=== PATIENT | male | born 1985 | race Caucasian/White ===

== ENCOUNTER 2016-03-16 21:59 | Emergency (ER) | payer MEDICAID, OTHER ==
[2016-03-16 22:25] VITALS: BP 127/78; PULSE 101; RESP 16; TEMP 98.1; O2SAT 96
--- NOTE | 2016-03-16 22:50 | UCPHY ---
H & P Time Seen by Provider: 03/16/16 22:13 Patient Type: New HPI/ROS: This patient presents with a chief complaint of a cough which is productive and which has been present for approximately 1 week. He also has a stiff neck. When the illness 1st began he had generalized myalgias but these have resolved except for the neck pain and he denies any headache or sore throat. He has had some mild nasal congestion but no fever, ear pain, chest pain or shortness of breath. He is also hoarse Smoking Status: Current every day smoker Physical Exam: GENERAL: Well-appearing, well-nourished and in no acute distress. HEAD: Atraumatic, normocephalic. EYES: Pupils equal round and reactive to light, extraocular movements intact, sclera anicteric, conjunctiva are normal. ENT: TMs normal, nares patent, oropharynx clear without exudates. Moist mucous membranes. NECK: Normal range of motion, supple without lymphadenopathy or JVD. LUNGS: Breath sounds clear to auscultation bilaterally and equal. No wheezes rales or rhonchi. HEART: Regular rate and rhythm EXTREMITIES: Normal range of motion, NEUROLOGICAL: Cranial nerves II through XII grossly intact. Normal speech, normal gait. PSYCH: Normal mood, normal affect. SKIN: Warm, dry, normal turgor, no visible rashes or lesions. Constitutional: Initial Vital Signs Temperature (C) 36.7 C 03/16/16 22:12 Heart Rate 101 H 03/16/16 22:12 Respiratory Rate 16 03/16/16 22:12 Blood Pressure 127/78 H 03/16/16 22:12 O2 Sat (%) 96 03/16/16 22:12 O2 Delivery Mode Room Air Allergies/Adverse Reactions: No Known Allergies Allergy (Verified 03/16/16 22:19) Home Medications: Medication Instructions Recorded Albuterol Hfa Anes Only 03/16/16 Medical Decision Making Differential Diagnosis: I believe that this patient has a viral illness and then antibiotics are not indicated. I do not believe that a chest x-ray would be abnormal. Departure - Departure Disposition: Home, Routine, Self-Care Clinical Impression: Acute bronchitis Qualifiers: Bronchitis organism: unspecified organism Qualifier Code: (J20.9) Acute bronchitis, unspecified Condition: Good Instructions: Acute Bronchitis (ED) Additional Instructions: If your symptoms have not resolved in another 5-7 days you should be re- evaluated. Try Robitussin DM which you can get without a prescription. Adult Pain & Fever Control: We recommend Acetaminophen (Tylenol) and Ibuprofen (Motrin, Advil) for pain and fever control. When fever is high or pain severe, both drugs can be used at the same time, but at different intervals. Please note the time differences. Your dose is: Acetaminophen [650]mg every 4 to 6 hours ibuprofen [600]mg every [6] hours with food OR naproxen Sodium (Aleve) [440]mg every 12 hours. Note: do not take Acetaminophen with Hydrocodone (Vicodin, Lortab) or Oxycodone (Percocet). These medications also contain Acetaminophen. No more than 3000 mg of Acetaminophen should be taken in 24 hours (for an adult) . The maximal dose of ibuprofen that it is safe in a 24-hour period is 2400 mg. You may take 400 mg every 4 hours, 600 mg every 6 hours or 800 mg every 8 hours safely. - PQRS PQRS Measurement: Not applicable
== END 2016-03-16 22:53 | disposition home or self-care (01) ==
LOC: CED 21:59
DX: J20.9 Acute bronchitis, unspecified (principal); M54.2 Cervicalgia
CPT/HCPCS: 99203-PO; G0463-PO

== ENCOUNTER 2016-06-30 11:09 | Emergency (ER) | payer MEDICAID ==
[2016-06-30 11:27] VITALS: RESP 16; TEMP 97.7
[2016-06-30 12:17] LABS: % IMMATURE GRANULYOCYTES 0.2 % (0.0-1.1); ABSOLUTE IMMATURE GRANULOCYTES 0.02 10^3/uL (0.00-0.10); ADD DIFF? NO; ADD MORPH? NO; ADD SCAN? NO; ATYPICAL LYMPHOCYTE FLAG 20 (0-99); FRAGMENT RBC FLAG 0 (0-99); HEMOGLOBIN 16.9 g/dL (13.7-17.5); LEFT SHIFT FLG 0 (0-99); LIPEMIA HEMOLYSIS FLAG 90 (0-99); MEAN CELL HEMOGLOBIN 30.3 pg (27.9-34.1); MEAN CELL HEMOGLOBIN CONCENTR. 33.8 g/dL (32.4-36.7); MEAN CELL VOLUME 89.6 fL (81.5-99.8); MEAN PLATELET VOLUME 10.7 fL (8.7-11.7); PLATELET CLUMPS FLAG 0 (0-99); PLATELET COUNT 289 10^3/uL (150-400); RED BLOOD CELL COUNT 5.58 10^6/uL (4.40-6.38); RED CELL DISTRIBUTION WIDTH 12.8 % (11.5-15.2)
[2016-06-30 12:22] LABS: COLOR YELLOW; LEUKOCYTE ESTERASE,URINE NEGATIVE (NEGATIVE); NITRITE,URINE NEGATIVE (NEGATIVE)
[2016-06-30 12:38] LABS: ALANINE AMINOTRANSFERASE 26 IU/L (21-72); ALBUMIN 4.8 g/dL (3.5-5.0); ALKALINE PHOSPHATASE 60 IU/L (38-126); ANION GAP 18 mEq/L (8-16); ASPARTATE AMINOTRANSFERASE 28 IU/L (17-59); CALCIUM 9.9 mg/dL (8.5-10.4); CARBON DIOXIDE 24 mEq/l (22-31); CHLORIDE 101 mEq/L (97-110); CREATININE 0.7 mg/dL (0.7-1.3); GLOMERULAR FILTRATION RATE > 60; GLUCOSE 88 mg/dL (70-100); POTASSIUM 4.3 mEq/L (3.5-5.2); SODIUM 143 mEq/L (134-144); TOTAL PROTEIN 8.2 g/dL (6.3-8.2)
--- NOTE | 2016-06-30 12:47 | EDPHY ---
H & P Time Seen by Provider: 06/30/16 11:17 HPI/ROS: 30-year-old male presents complaining of feeling like he just needs to be checked out is requesting a chest x-ray and he would like his kidneys checked as well. He states he sometimes has her right upper back pain that is worse recently after heavy lifting No loss of bowel or bladder. No shortness of breath, no chest pain He also states that he has a history of reflux and he is scheduled to see Gastroenterology later in the week. Review of systems As per HPI General no fever no chills no weakness HEENT no eye pain no eye discharge. No eye redness, no sore throat Respiratory no cough, no shortness of breath Cardiac no chest pain, no peripheral edema GI no abdominal pain, no diarrhea, no constipation, no nausea, no vomiting no flank pain, no hematuria, no dysuria Musculoskeletal positive myalgias, no joint pain Heme no easy bruising, no easy bleeding Endo no polyuria, no polydipsia Skin no rashes, no pruritus Neuro no syncope, no dizziness, no headaches Psych is no suicidal ideation, no homicidal ideation Past Medical/Surgical History: GERD Substance Abuse Attention deficit disorder Smoking Status: Current every day smoker Physical Exam: 30-year-old male alert and oriented no acute distress nontoxic appearance slightly anxious HEENT atraumatic normocephalic, extraocular muscles intact, anicteric Oropharynx negative for erythema negative exudate, tolerating her own secretions Neck supple no meningismus Lungs clear to auscultation bilaterally Heart regular rate and rhythm without murmur rub or gallop Abdomen nondistended normoactive bowel sounds soft nontender Back no CVA tenderness, no step-offs, no spinal tenderness Mild tenderness to palpation at right in for scapular border no ecchymosis no erythema no rash Extremities no cyanosis clubbing or edema Neuro alert and oriented, no focal deficits Constitutional: Initial Vital Signs Temperature (C) 36.5 C 06/30/16 11:24 Heart Rate 81 06/30/16 11:24 Respiratory Rate 16 06/30/16 11:24 Blood Pressure 120/84 H 06/30/16 11:24 O2 Sat (%) 98 06/30/16 11:24 O2 Delivery Mode Room Air Allergies/Adverse Reactions: No Known Allergies Allergy (Verified 06/30/16 11:27) Home Medications: Medication Instructions Recorded Adderall 20 mg (*) 06/30/16 [place] Mj 06/30/16 Medical Decision Making - Diagnostics Imaging Results: Imaging Impressions Chest X-Ray 06/30/16 11:44 Impression: Mild peribronchial thickening suggesting airways disease/bronchitis. ED Course/Re-evaluation: Medical decision making and ER course Patient seen and evaluated for right upper back pain and may take feeling that he needs to be x-rayed he has a concern about both his chest and his kidneys. Labs CBC CMP within normal limits Chest x-ray no infiltrate no effusion no pneumothorax no cardiomegaly Urinalysis normal Patient appears well, labs including CBC CMP urinalysis and chest x-ray done to assure patient that lungs and kidneys were okay. Impression Right upper back pain-musculoskeletal Anxiety Plan Follow-up primary care physician Discharge Ibuprofen as needed for right upper back pain - Data Points Laboratory Results: Laboratory Results 06/30/16 12:10 06/30/16 12:10 06/30/16 06/30/16 06/30/16 12:10 12:10 12:10 WBC 8.06 10^3/uL 10^3/uL (3.80-9.50) RBC 5.58 10^6/uL 10^6/uL (4.40-6.38) Hgb 16.9 g/dL g/dL (13.7-17.5) Hct 50.0 % % (40.0-51.0) MCV 89.6 fL fL (81.5-99.8) MCH 30.3 pg pg (27.9-34.1) MCHC 33.8 g/dL g/dL (32.4-36.7) RDW 12.8 % % (11.5-15.2) Plt Count 289 10^3/uL 10^3/uL (150-400) MPV 10.7 fL fL (8.7-11.7) Neut % (Auto) 57.4 % % (39.3-74.2) Lymph % (Auto) 34.4 % % (15.0-45.0) [place] % (Auto) 6.2 % % (4.5-13.0) Eos % (Auto) 1.1 % % (0.6-7.6) Baso % (Auto) 0.7 % % (0.3-1.7) Nucleat RBC Rel Count 0.0 % % (0.0-0.2) Absolute Neuts (auto) 4.62 10^3/uL 10^3/uL (1.70-6.50) Absolute Lymphs (auto) 2.77 10^3/uL 10^3/uL (1.00-3.00) Absolute Monos (auto) 0.50 10^3/uL 10^3/uL (0.30-0.80) Absolute Eos (auto) 0.09 10^3/uL 10^3/uL (0.03-0.40) Absolute Basos (auto) 0.06 10^3/uL 10^3/uL (0.02-0.10) Absolute Nucleated RBC 0.00 10^3/uL 10^3/uL (0-0.01) Immature Gran % 0.2 % % (0.0-1.1) Immature Gran # 0.02 10^3/uL 10^3/uL (0.00-0.10) Sodium 143 mEq/L mEq/L (134-144) Potassium 4.3 mEq/L mEq/L (3.5-5.2) Chloride 101 mEq/L mEq/L (97-110) Carbon Dioxide 24 mEq/l mEq/l (22-31) Anion Gap 18 mEq/L H mEq/L (8-16) BUN 15 mg/dL mg/dL (7-23) Creatinine 0.7 mg/dL mg/dL (0.7-1.3) Estimated GFR > 60 Glucose 88 mg/dL mg/dL (70-100) Calcium 9.9 mg/dL mg/dL (8.5-10.4) Total Bilirubin 1.0 mg/dL mg/dL (0.1-1.4) AST 28 IU/L IU/L (17-59) ALT 26 IU/L IU/L (21-72) Alkaline Phosphatase 60 IU/L IU/L (38-126) Total Protein 8.2 g/dL g/dL (6.3-8.2) Albumin 4.8 g/dL g/dL (3.5-5.0) Urine Color YELLOW Urine Appearance CLEAR Urine pH 7.0 (5.0-7.5) Ur Specific [place] <= 1.005 (1.002-1.030) Urine Protein NEGATIVE (NEGATIVE) Urine Ketones NEGATIVE (NEGATIVE) Urine Blood NEGATIVE (NEGATIVE) Urine Nitrate NEGATIVE (NEGATIVE) Urine Bilirubin NEGATIVE (NEGATIVE) Urine Urobilinogen 0.2 EU EU (0.2-1.0) Ur Leukocyte Esterase NEGATIVE (NEGATIVE) Urine Glucose NEGATIVE (NEGATIVE) Departure - Departure Disposition: Home, Routine, Self-Care Clinical Impression: Upper back pain on right side Condition: Good Instructions: Flank Pain (ED), Back Pain (ED) Additional Instructions: Your blood test today were normal we did a complete blood count a complete metabolic panel and a urinalysis. There were no signs of infection, there was no signs of kidney damage. Your chest x-ray also was normal. Referrals: [facility],. [Primary Care Provider] - As per Instructions
[2016-06-30 13:07] VITALS: BP 111/63; PULSE 78; O2SAT 97
== END 2016-06-30 13:05 | disposition home or self-care (01) ==
LOC: CED 11:09
DX: M54.6 Pain in thoracic spine (principal); F17.200 Nicotine dependence, unspecified, uncomplicated
CPT/HCPCS: 71020-PO; 80053-PO; 81003-PO; 85025-PO

== ENCOUNTER 2016-12-12 14:53 | Emergency (ER) | payer MEDICAID ==
[2016-12-12 15:05] VITALS: BP 139/86; PULSE 89; RESP 16; TEMP 98.4; O2SAT 99
--- NOTE | 2016-12-12 15:34 | EDPHY ---
H & P Time Seen by Provider: 12/12/16 14:59 HPI/ROS: CHIEF COMPLAINT: Neck pain History by patient HISTORY OF PRESENT ILLNESS: 31-year-old man with history of hep C, on Adderall and prior history of methamphetamine use presents with multiple complaints but most specifically worried about a tumor or aneurysm in his neck or at the base of his brain. Patient states that he gets the lump on the left side of his neck near the base of his skull that is painful and when he gets that he sometimes feel like it makes his nose run or he tastes blood in his mouth. This lump and pain has been going on off for several months. He has a history of migraines but this feels different. 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 He has pain over his base of his right thumb and radial side of his right wrist. He gets some relief from wearing an [id number] splint for this. Sometimes the pain in his neck radiates down to his center of his back. There is no lower extremity weakness and no loss of bowel or bladder control. He sometimes feels like he loses the hearing in his left ear. He denies any fever. He also states that he has a chronic sore throat as well as some chronic abdominal complaints for which he has seen several doctors. The patient is a smoker. He does not inject any drugs. He says his last methamphetamine use was over a year ago and that he smoked it. It is unclear why he decided to seek medical attention today but does state that he has seen several doctors who he says he does not trust because they do not take his symptoms seriously. He did not take his Adderall today. REVIEW OF SYSTEMS: As in HPI, and all other systems reviewed and are negative Smoking Status: Current every day smoker Physical Exam: General Appearance: Alert, nontoxic, well-appearing. Head: normocephalic, atraumatic Eyes: Pupils equal and round, reactive to light, extraocular movements intact, no pallor or injection. Ears: TMs clear bilaterally Mouth: Mucous membranes moist. Neck: No bony tenderness, full range of motion without pain, no bruits, positive tenderness to palpation along the left trapezius muscle with palpable muscle spasm Respiratory: Normal, effort, lungs are clear to auscultation. No wheezes, rales or rhonchi. Cardiovascular: Regular rate and rhythm. S1, S2, no murmurs, gallops or rubs appreciated Gastrointestinal: Abdomen is soft and nontender, no masses, bowel sounds normal. Back: No CVA tenderness, no bony tenderness, mild tenderness over his left scapula Neurological: Awake, alert and oriented x 3, no pronator drift, normal gait, walks on heels and toes, DTRs 2+ and equal bilaterally, radial, median and ulnar nerves intact motor and sensory bilaterally Skin: Warm and dry, no rashes. Musculoskeletal: No deformities, positive tenderness over right radial styloid and positive tenderness with flexion of wrist and thumb, radial pulses 2 + and equal bilaterally Extremities: full range of motion, no edema, DP2+ bilat Psychiatric: Patient has normal affect but seems slightly anxious, there is no agitation. Constitutional: Initial Vital Signs Temperature (C) 36.9 C 12/12/16 14:58 Heart Rate 89 12/12/16 14:58 Respiratory Rate 16 12/12/16 14:58 Blood Pressure 139/86 H 12/12/16 14:58 O2 Sat (%) 99 12/12/16 14:58 O2 Delivery Mode Room Air Allergies/Adverse Reactions: No Known Allergies Allergy (Verified 12/12/16 15:05) Home Medications: Medication Instructions Recorded Adderall 20 mg (*) 06/30/16 [place] Mj 06/30/16 MDM/Departure - [facility] ED Course/Re-evaluation: 31-year-old man presents with multiple complaints but an unremarkable exam except for her right hand exam consistent with de Quervain's tenosynovitis and some palpable muscle tenderness and spasm in his left trapezius. Patient was given reassurance that there is no evidence of a brain tumor aneurysm given his normal neurologic exam and no evidence of any emergent condition today.. The lump that he has worried about is trapezius muscle tenderness and spasm. We discussed home care and conservative measures. I am referring him to hand specialist for his de Quervain's tenosynovitis. We also discussed the need to get a consistent primary care provider with him we can't ongoing relationship and build trust so that there is less confusion about all his ongoing symptoms. - Depart Disposition: Home, Routine, Self-Care Clinical Impression: Neck pain, musculoskeletal, De Quervain's disease (tenosynovitis) Condition: Good Instructions: De Quervain Disease (ED), Neck Pain (ED) Additional Instructions: You were seen by Dr. Connie Acosta today. You had a normal exam today. Your right wrist pain is due to the choir pins tenosynovitis, inflammation the tendon. I recommending follow-up with a hand surgeon, Dr. Bagley, for consideration of steroid injection. You may take ibuprofen 600 mg 4 times a day as needed for pain as well as icing the wrist. Try massage and warm heat for your tight neck muscles. Please establish a regular primary care physician. Return for any worsening or new concerns. Referrals: NONE *PRIMARY CARE P,. [Primary Care Provider] - As per Instructions Sonu Bagley MD [Medical Doctor] - As per Instructions
== END 2016-12-12 15:43 | disposition home or self-care (01) ==
LOC: CED 14:53
DX: M54.2 Cervicalgia (principal); M65.4 Radial styloid tenosynovitis [de Quervain]; F17.200 Nicotine dependence, unspecified, uncomplicated

== ENCOUNTER → 2017-06-11 | Outpatient (CLI) | payer MEDICAID | LOC: CIMAGING 10:26 | PROVIDERS: ATTEND Family Medicine | DX: R60.9 Edema, unspecified (principal) | CPT/HCPCS: 93970-PO ==